=== PATIENT | male | born 1995 | race Caucasian/White ===

== ENCOUNTER 2017-02-03 06:12 | Day surgery (SDC) | payer OTHER ==
--- NOTE | 2017-02-01 15:09 | GHP ---
[f rep st] PREOP HISTORY AND PHYSICAL DATE OF ADMISSION: 02/03/2017 CHIEF COMPLAINT: Symptomatic hemorrhoids. HISTORY OF PRESENT ILLNESS: This is an otherwise healthy 22-year-old male referred to me with longs tanding hemorrhoids. He reports having them since 6th grade and does state that now after sitting f or long periods they swell. He does state that he uses Preparation-H wipes containing Witch Elyssa, and that he gets minimal relief from this. He does state that they are about the size of a dime to larger when they are inflamed and about the size of skin tags normally. They tend to swell for abou t an hour or two after having a bowel movement and tend to return to normal shortly thereafter. He states that his diet for the most part is vegan or vegetarian and that he has a lot of fiber within his diet, having daily to twice daily bowel movements. He denies having any personal or family hist ory of Crohn's or ulcerative colitis, and other than low vitamin D level, is otherwise healthy. He denies having any obstructive symptoms, stating that he feels well. He wants fixation of these so t hat he can move on with his life. PAST MEDICAL HISTORY: Vitamin D deficiency. PAST SURGICAL HISTORY: None. CURRENT MEDICATIONS: Witch Elyssa as needed. ALLERGIES: None. FAMILY HISTORY: No Crohn's or inflammatory bowel disease. No history with issues with anesthesia. SOCIAL HISTORY: Social drinker, vegan, works locally. PHYSICAL EXAM: GENERAL: He is alert and oriented, in no acute distress. LUNGS: Clear to ausculta tion bilaterally. CV: Hemodynamically stable without any murmurs. ABDOMEN: Soft, nondistended. RECTAL: Moderate-sized external hemorrhoids with skin tags. Visible inflamed internal grade 2 hemo rrhoids. Normal rectal tone. No fissures or suspicious masses. REVIEW OF SYSTEMS: A full 10-point review of systems was performed and, unless explicitly stated ab ove, is otherwise negative. ASSESSMENT AND PLAN: A 22-year-old male with symptomatic internal and external hemorrhoids. I coun seled the patient in the clinic that he has a significant amount of external hemorrhoids which precl udes in-office banding. He stated that he wanted to think about it as I counseled him that the proc edure can be excruciatingly painful. At this point in time, he wishes to proceed with surgery for a traditional open hemorrhoidectomy to be performed in the operating room. Risks, benefits, and alte rnatives were discussed. /[id number]/MODL
[~2017-02-03 06:12] MED LIST: cefOXitin SODIUM 1 GM in D5W 50 ML IV ONE
[2017-02-03] MEDS ORDERED: LIDOCAINE 1% 5 ML SDV ONE (06:17)
[2017-02-03] MEDS ORDERED: LR 1,000 ML IV ONE (06:21)
[2017-02-03] MEDS ORDERED: LIDOCAINE 1% 5 ML SDV ID PRN (06:21)
[2017-02-03] MEDS ORDERED: BUPIVACAINE/EPI 0.25% 30 ML SDV ONE ×2 (07:03→07:59)
[2017-02-03] MEDS ORDERED: LIDOCAINE 2% JELLY 20 ML (UROJECT) ONE (07:03)
[2017-02-03] MEDS ORDERED: fentaNYL 250 MCG/5 ML INJ ONE (07:04)
[2017-02-03] MEDS ORDERED: PROPOFOL 200 MG/20 ML VIAL ONE ×2 (07:04)
[2017-02-03] MEDS ORDERED: LIDOCAINE 2% 100 MG/5 ML SYR ONE (07:07)
[2017-02-03] MEDS ORDERED: ROCURONIUM 50 MG/5 ML VIAL ONE (07:07)
[2017-02-03] MEDS ORDERED: MIDAZOLAM 2 MG/2 ML VIAL ONE (07:13)
[2017-02-03] MEDS ORDERED: ONDANSETRON 4 MG/2 ML VIAL ONE (07:49)
[2017-02-03] MEDS ORDERED: DEXAMETHASONE 4 MG/ML VIAL ONE (07:49)
[2017-02-03] MEDS ORDERED: KETOROLAC 30 MG/1 ML SDV ONE (08:43)
--- NOTE | 2017-02-03 09:39 | GOP ---
[f rep st] OPERATIVE REPORT DATE OF OPERATION: 02/03/2017 SURGEON: Izaiah Siddiqui MD [employer] MANAGER: None. ANESTHESIA: General endotracheal. ANESTHESIOLOGIST: Dr. Angel. PREOPERATIVE DIAGNOSIS: Hemorrhoids. POSTOPERATIVE DIAGNOSIS: 1. Large engorged external hemorrhoids. 2. Grade 2 internal hemorrhoids with skin tags. PROCEDURE PERFORMED: Examination under anesthesia with 2-column hemorrhoidectomy. FINDINGS: 2 large, mostly external, components in the left anterior and left posterior positions, e xcised completely. Closed primarily. SPECIMENS: Hemorrhoids. ESTIMATED BLOOD LOSS: 10 cc. DESCRIPTION OF PROCEDURE: The patient was greeted in the preoperative suite. Once again, risks, be nefits, and alternatives were discussed. Consent was signed. He was then taken back to the operati ve suite, where all anesthesia machines were on and functioning. General endotracheal anesthesia wa s then induced without incident. He was then placed in the prone position, with all pressure points appropriately padded. He was then prepped and draped in typical sterile fashion. Using a well lub ricated finger, I did a digital rectal exam. I identified no significant intra-anal pathology. I d id identify what appeared to be mostly external hemorrhoids on the left side, with skin tag componen t, which was consistent with the patient's preoperative complaints. I identified really minimal dis ease on the right side, including both internal and external hemorrhoids. I then performed a 2-colu mn hemorrhoidectomy on the left side. Using a 3-0 Vicryl stitch, I ligated the vessel proximally. Using a combination of a 10 blade scalpel and Metzenbaum scissors, I then removed the hemorrhoidal c olumns completely down to the muscular tissue. They were both then passed off and sent to Pathology . The anoderm was then reapproximated with running locking 3-0 Vicryl stitches. This was done for both the left anterior and left posterior hemorrhoidal columns, noting excellent hemostasis and good functional result, with no intrusion into the muscularis. Hemostasis was achieved with electrocaut keron and gentle pressure. A field block was obtained with 0.25% Marcaine with epinephrine throughout the field. The area was then packed with Gel-Foam soaked with lidocaine jelly, over which an ABD a nd sterile undergarments were placed. The patient was then extubated in the operative suite, and ta tiburcio to the PACU in satisfactory condition. DRAINS: None. COUNTS: All counts were reported as correct x2. /[id number]/MODL
== END 2017-02-03 10:30 | disposition home or self-care (01) ==
LOC: FSGY 06:12
PROVIDERS: ATTEND Surgery
PROC: 06BY3ZC Excision of Hemorrhoidal Plexus, Percutaneous Approach (ICD-10-PCS; principal; 2017-02-03 07:15)
DX: K64.8 Other hemorrhoids (principal); K64.1 Second degree hemorrhoids; E55.9 Vitamin D deficiency, unspecified
CPT/HCPCS: J0697; J1100; J1885; J2001; J2250; J2405; J2704; J3010